=== PATIENT | female | born 1955 | race Caucasian/White ===

== ENCOUNTER → 2017-02-07 | Outpatient (CLI) | payer BC ==
[~2017-02-07] MED LIST: REGADENOSON 0.4 MG/5 ML DISP.SYRIN. IV ONE
--- NOTE | 2017-02-07 12:35 | PCVCIMAG ---
APPROVED REPORT Study performed: 02/07/2017 10:06:12 EXAM: Comprehensive 2D, Doppler, and color-flow Echocardiogram Status: routine BSA: 1.87 HR: 84 bpmBP: 118/80 mmHg Rhythm: NSR Other Information Study Quality: Adequate Indications Hypertension, Diabetes, Hyperlipidemia, Dyspnea 2D Dimensions LVEF(%): 59.06 (>50%) IVSd: 9.62 (7-11mm)LVOT Diam: 19.54 (18-24mm) LVDd: 45.05 mm PWd: 11.75 (7-11mm)Ascending Ao: 32.16 (22-36mm) LVDs: 31.01 (25-40mm) Left Atrium: 40.71 (27-40mm) Aortic Root: 26.12 mm [place]'s LVEF: 59.06 % Volumes Left Atrial Volume (Systole) Single Plane 4CH: 37.66 mLSingle Plane 2CH: 44.04 mL LA ESV Index: 23.00 mL/m2 Aortic Valve AoV Peak Octaviano.: 1.37 m/s AO Peak Gr.: 7.54 mmHgLVOT Max P.90 mmHg LVOT Max V: 0.99 m/s MARITZA Vmax: 2.16 cm2 Mitral Valve E/A Ratio: 0.8 MV Decel. Time: 175.48 ms MV E Max Octaviano.: 0.77 m/s MV A Octaviano.: 0.95 m/s IVRT: 103.81 ms Pulmonary Valve PV Peak Gr.: 2.68 mmHg Pulmonary Vein P Vein S: 0.56 m/sP Vein A: 0.27 m/s P Vein D: 0.51 m/sP Vein A Dur.: 96.9 msec P Vein S/D Ratio: 1.10 Left Ventricle The left ventricle is normal size. There is normal LV segmental wall motion. There is normal left ventricular wall thickness. Left ventricular systolic function is normal. The left ventricular ejection fraction is within the normal range. LVEF is 60-65%. The left ventricular diastolic function is normal. Right Ventricle The right ventricle is normal size. The right ventricular systolic function is normal. Atria The left atrium size is normal. The right atrium size is normal. Aortic Valve The aortic valve is normal in structure. The aortic valve is not well visualized. Aortic valve is calcified. The Aortic valve is sclerotic. Aortic valve is thickened but has adequate excursion. Aortic valve is grossly normal in structure. No aortic regurgitation is present. There is no aortic valvular stenosis. Mitral Valve The mitral valve is normal in structure. There is no mitral valve regurgitation noted. No evidence of mitral valve stenosis. Tricuspid Valve The tricuspid valve is normal in structure. There is no tricuspid valve regurgitation noted. Pulmonic Valve The pulmonary valve is normal in structure. Trace pulmonic regurgitation. Great Vessels The aortic root is normal in size. IVC is normal in size and collapses with >50% inspiration Pericardium There is no pericardial effusion. <Conclusion> The left ventricle is normal size. LVEF is 60-65%. The aortic valve is normal in structure. The mitral valve is normal in structure. The tricuspid valve is normal in structure. The pulmonary valve is normal in structure. Trace pulmonic regurgitation.
== END | disposition home or self-care (01) ==
LOC: PCVCIMAG 09:47
PROVIDERS: ATTEND Internal Medicine
DX: I37.1 Nonrheumatic pulmonary valve insufficiency (principal); E78.5 Hyperlipidemia, unspecified; R94.2 Abnormal results of pulmonary function studies; I10 Essential (primary) hypertension; F17.200 Nicotine dependence, unspecified, uncomplicated; E11.9 Type 2 diabetes mellitus without complications; Z79.84 Long term (current) use of oral hypoglycemic drugs; Z98.51 Tubal ligation status
CPT/HCPCS: 36415; 93306; J2785; 93005